=== PATIENT | female | born 1990 | race Caucasian/White ===

== ENCOUNTER 2025-04-04 12:47 | Emergency (ER) | payer OTHER ==
[~2025-04-04] VITALS: Ht 157.4 cm; Wt 95.3 kg
[2025-04-04] MEDS ORDERED: NIKKI 3 MG-0.01 EAC1 PO (12:54)
[2025-04-04] MEDS ORDERED: Lidocaine Hydrochloride 15 ML UDC PO STA (13:24)
[2025-04-04] MEDS ORDERED: BENZOCAINE 20% 11.9 GM GEL T STA (13:24)
[2025-04-04] MEDS ORDERED: PENICILLIN V POTASSIUM 500 MG TAB PO ONE (13:25)
[2025-04-04] MEDS ORDERED: Ketorolac Tromethamine 60 MG/2 ML VIAL IM ONE (13:25)
[2025-04-04] MEDS ORDERED: PENICILLIN VK500 MG PO (13:57)
[2025-04-04] MEDS ORDERED: IBU800 MG PO (14:00)
== END 2025-04-04 13:50 | disposition home or self-care (01) ==
LOC: ED 12:47
DX: K04.7 Periapical abscess without sinus (principal); K02.9 Dental caries, unspecified; H92.02 Otalgia, left ear; F17.290 Nicotine dependence, other tobacco product, uncomplicated; Z79.899 Other long term (current) drug therapy